=== PATIENT | female | born 1990 | race Caucasian/White ===

== ENCOUNTER 2024-04-12 08:04 | Outpatient (CLI) | payer OTHER, SELFPAY ==
--- NOTE | 2024-04-12 08:15 | US_ITS ---
Patient: LORNE LAURENT Facility:?[facility] Patient ID:?[id number] Site Patient ID:?[id number] Site :?1990 Study:?US-Breast Left DSM to read-04/12/2024 8:49:18 AM Ordering Physician:Batsheva Felipe Final Report: ULTRASOUND-GUIDED BREAST BIOPSY AND BIOPSY MARKER PLACEMENT CLINICAL HISTORY: Indeterminate solid nodule. COMPARISON STUDIES: 04/05/2024. TECHNIQUE: Real-time ultrasound with image documentation was used for targeting the breast lesion. Core biopsy specimens were obtained using an automated gun with a 18- gauge biopsy needle. CONSENT and TIME OUT: The procedure, risks, and alternatives were explained to the patient and a consent was signed. [place] Protocol was followed including pre-procedure verification that relevant information/documentation was available, reviewed and properly matched to the patient; consent accurate and complete; and equipment and supplies available. Time Out was conducted just prior to starting procedure to verify the four required elements: patient identity, correct side/site marked (if applicable), procedure, relevant images/results properly labeled and displayed (if applicable). PROCEDURE: The patient was positioned supine on the ultrasound table. The breast was prepped with ChloraPrep. 8 cc of 1 percent lidocaine used for local anesthesia. Core samples were obtained. A sterile metal biopsy clip was placed percutaneously to simeon the lesion position within the breast. The specimens were placed in 10% formalin and sent to the pathology department. Pressure was held on the biopsy site until all bleeding subsided. The skin incision was closed with Steri-Strips. An ice pack was positioned over the biopsy site. Post-biopsy instructions were reviewed with the patient, and a written copy was given to her. LATERALITY: LEFT breast. LESION: Hypoechoic circumscribed macro lobulated solid nodule measuring 2.1 x 1.4 x 2.1 cm at 10 o`clock 5 cm from the nipple. SUSPICION FOR MALIGNANCY: Low, probable fibroadenoma. NUMBER OF SAMPLES: 5. BIOPSY CLIP SHAPE: Oval. PROXIMITY OF CLIP TO TARGET: Within the lesion. IMPRESSION: Ultrasound-guided breast biopsy. When the pathology report is available, an addendum to this report will be made. ACR not applicable Dictated by J Carlos Robles MD @ 04/12/2024 12:18:04 PM jj/Dictated by: J Carlos Robles MD @ 04/12/2024 12:18:00 PM ----ADDENDUM---- Addendum: Pathology consistent with fibroadenoma. No atypia or malignancy. Age- appropriate screening mammography recommended. If the lesion increases in size, then would recommend follow-up ultrasound and surgical referral. This is concordant. Dictated by: J Carlos Robles MD @04/13/2024 12:26:30 PM/SALLY:ava ADDENDUM: Please note technique should also state: Post-biopsy CC and ML digital mammograms were obtained to document position of the biopsy marker. CRL:jj 04/12/2024 Signed by:?J Carlos Robles MD @04/12/2024 1:36:22 PM (Electronic Signature)
--- NOTE | 2024-04-12 09:00 | MM_ITS ---
Patient: LORNE LAURENT Facility:?[facility] Patient ID:?[id number] Site Patient ID:?[id number] Site :?1990 Study:?XRay-Breast Left 2D w/ CAD POST CLIP PLACEMENT-04/12/2024 8:49:32 AM Ordering Physician:?Not A Local Final Report: PLEASE SEE ULTRASOUND-GUIDED LEFT BREAST BIOPSY PERFORMED SAME DAY CRL:yann lerner/Dictated by: J Carlos Robles MD @ 04/12/2024 12:18:00 PM Signed by:?J Carlos Robles MD @04/12/2024 2:58:21 PM (Electronic Signature)
== END 2024-04-12 08:05 | disposition home or self-care (01) ==
LOC: US 08:06
PROVIDERS: Visit Provider Family Medicine
DX: N63.20 Unspecified lump in the left breast, unspecified quadrant (principal); D24.2 Benign neoplasm of left breast; R92.8 Other abnormal and inconclusive findings on diagnostic imaging of breast
CPT/HCPCS: 19083; 77065; 88305; A4648; A4649